=== PATIENT | male | born 2000 | race Caucasian/White ===

== ENCOUNTER 2023-09-03 20:16 | Emergency (ER) | payer BC ==
[2023-09-03] MEDS: Lidocaine 1% 5 ML VIAL INJECT ONE (21:29)
[2023-09-03] MEDS: Diphtheria,Pertussis(Acell),Tetanus Vaccine 0.5 ML Syringe IM ONE (21:30)
== END 2023-09-03 22:12 | disposition home or self-care (01) ==
LOC: JP.ED 20:16
DX: S60.351A Superficial foreign body of right thumb, initial encounter (principal); Z23 Encounter for immunization; W45.8XXA Other foreign body or object entering through skin, initial encounter
CPT/HCPCS: 90471; 90715; 99283-25